=== PATIENT | female | born 1960 | race Caucasian/White ===

== ENCOUNTER 2017-10-30 18:37 | Emergency (ER) | payer OTHER ==
--- NOTE | 2017-10-30 18:48 | ED GENERAL ADULT ---
History of Present Illness General Chief Complaint: ETOH/Drug Related Complaint Stated Complaint: ETOH, COMBATIVE Source: old records, EMS, police Exam Limitations: intoxication Triage Nurses Notes Reviewed? yes HPI: Patient brought in on a police paper. Patient very intoxicated and belligerent. Patient unkempt and try to isolate herself in the bathroom. Patient then kicked aoc director intelligence officer and EMS personnel. Patient is very agitated and screaming and cursing. Patient is not answering any questions. Patient requires chemical and mechanical restraints for her and our safety. (Jenn MUNIZ,Ean Waldrop) Vital Signs & Intake/Output Vital Signs & Intake/Output Vital Signs Date Time Temp Pulse Resp B/P B/P Pulse O2 O2 Flow FiO2 Mean Ox Delivery Rate 10/31 0616 98.1 72 20 142/87 98 Room Air 10/31 0420 97.0 66 16 117/75 96 Room Air 10/31 0021 96.9 76 16 96/55 95 Room Air 10/30 2254 73 16 110/72 97 Room Air 10/30 2012 98.7 76 20 129/80 99 Room Air ED Intake and Output 10/31 0000 10/30 1200 Intake Total 0 Output Total Balance 0 Intake, Oral 0 Allergies Coded Allergies: phenylephrine (SWELLING 10/30/17) (Natty MUNIZ,Ashok Gaspar) Past History Travel History Traveled to [place] past 21 day No Medical History Any Pertinent Medical History? see below for history Psychiatric: anxiety Surgical History Surgical History: unobtainable Psychosocial History What is your primary language Somali Tobacco Use: Refused to answer ETOH Use: DRANK TONIGHT Illicit Drug Use: benzodiazepines Family History Hx Contributory? No (Ean Barajas MD) Review of Systems Review of Systems Constitutional: Reports: see HPI. (Ean Barajas MD) Physical Exam Physical Exam General Appearance: well developed/nourished, awake, anxious, severe distress Head: atraumatic Eyes: Bilateral: PERRL. Ears, Nose, Throat: normal pharynx Neck: normal inspection Respiratory: normal breath sounds, no respiratory distress, lungs clear Cardiovascular: regular rate/rhythm, normal peripheral pulses Gastrointestinal: normal bowel sounds, soft Back: normal inspection Extremities: normal inspection Neurologic/Psych: VERY AGITATED, WON'T ANSWER ANY QUESTIONS Skin: intact, normal color, warm/dry Core Measures ACS in differential dx? No CVA/TIA Diagnosis: No Sepsis Present: No Sepsis Focused Exam Completed? No (Jenn MUNIZ,Ean Waldrop) Progress Differential Diagnoses I considered the following diagnoses in my evaluation of the patient: [Alcohol intoxication, drug intoxication, electrolyte abnormality, AMI] Initial ED EKG: PENDING Hand-Off Endorsed To: Natty MUNIZ,Ashok Gaspar Endorsed Time: 1899 Pending: EKG, labs Comments: She is awake alert and oriented 3. Patient denies any suicidal homicidal ideations. Patient just states that she was using drugs. Patient contracts for safety at this time. Patient is stable for discharge. (Jenn MUNIZ,Ean Waldrop) Plan of Care: Orders Procedure Date/time Status Regular Diet 10/31 B Active URINE DRUG SCREEN FOR ER ONLY 10/31 801 Active Restraint- Behavioral (Renew) 10/30 2033 Active TROPONIN LEVEL 10/30 1841 Complete ETHANOL 10/30 1841 Complete COMPREHENSIVE METABOLIC PANEL 10/30 1841 Complete CBC WITHOUT DIFFERENTIAL 10/30 1841 Complete EKG 10/30 1841 Active Patient Safety Monitor 10/30 184 Active Restraint- Behavioral (Order) 10/30 1840 Active Restraint- Discontinue 10/30 1020 Active Laboratory Tests 10/30/171937: Anion Gap 11, Estimated GFR > 60, BUN/Creatinine Ratio 11.7, Glucose 85, Calcium 9.4, Total Bilirubin 0.2, AST 25, ALT 26, Alkaline Phosphatase 59, Troponin I < 0.01, Total Protein 6.7, Albumin 4.0, Globulin 2.7, Albumin/Globulin Ratio 1.5, CBC w Diff NO MAN DIFF REQ, RBC 3.79 L, MCV 97.3, MCH 33.6 H, MCHC 34.5, RDW 14.6 H, MPV 8.1, Gran % 44.9, Lymphocytes % 44.9, Monocytes % 5.7, Eosinophils % 3.7, Basophils % 0.8, Absolute Granulocytes 2.6, Absolute Lymphocytes 2.6, Absolute Monocytes 0.3, Absolute Eosinophils 0.2, Absolute Basophils 0, Serum Alcohol 196.0 10/30/171841: Methadone Screen Cancelled, Barbiturate Screen Cancelled, Ur Phencyclidine Scrn Cancelled, Amphetamines Screen Cancelled, U Benzodiazepines Scrn Cancelled, Urine Cocaine Screen Cancelled, Urine Cannabis Screen Cancelled Initial ED EKG: NORMAL SINUS RHYTHM WITH NON-SPECIFIC st SEGMENT CHANGES LATERALLY, THE NONSPECIFIC CHANGES ARE NEW COMPARED WITH PREVIOUS. Comments: 10/30/2017 7:55:21 PM patient signed out to me by Dr. Barajas at shift exchange specialist. Currently the patient is sleeping in for locked restraints. If she persists in her current sedated state and appears to present no harm to others then she will be removed from the restraints. 10/31/2017 7:15:52 AM Cathy has been removed from her restraints and has spent an uneventful emergency department stay for the weight shifter. Her case has been signed out to Dr. Barajas at shift exchange specialist. (Natty MUNIZ,Ashok Gaspar) Departure Departure Disposition: HOME OR SELF CARE Condition: Stable Clinical Impression Primary Impression: Alcohol intoxication Secondary Impressions: Polysubstance abuse Referrals: Nohemi MUNIZ,Myl (PCP/Family) Additional Instructions: Pulse 11 returned immediately to the emergency department for any concerns of harming herself, anywhere else or any other concerns. Departure Forms: Customer Survey General Discharge Information (Jenn MUNIZ,Ean Waldrop) Critical Care Note Critical Care Note Critical Care Time: non-applicable (Jenn MUNIZ,Ean Waldrop)
[2017-10-30 19:47] LABS: ABSOLUTE BASOPHIL COUNT 0 /CUMM (0.0-0.2); ABSOLUTE EOSINOPHIL COUNT 0.2 /CUMM (0.0-0.7); ABSOLUTE GRANULOCYTE CT 2.6 /CUMM (1.4-6.5); ABSOLUTE LYMPH COUNT 2.6 /CUMM (1.2-3.4); ABSOLUTE MONOCYTE COUNT 0.3 /CUMM (0.10-0.60); BASOPHIL % 0.8 % (0.0-2.0); EOSINOPHIL % 3.7 % (0-5); GRANULOCYTE % 44.9 % (42.2-75.2); HEMATOCRIT 36.9 % (37-47); MEAN CORPUSCULAR HGB 33.6 PG (27.0-31.0); MEAN CORPUSCULAR HGB CONC 34.5 G/DL (33.0-37.0); MEAN CORPUSCULAR VOLUME 97.3 FL (81.0-99.0); MEAN PLATELET VOLUME 8.1 FL (7.4-10.4); PLATELET COUNT 300 /CUMM (130-400); RBC DISTRIBUTION WIDTH 14.6 % (11.5-14.5); RED BLOOD CELL CT 3.79 /CUMM (4.20-5.40); WHITE BLOOD CELL COUNT 5.8 /CUMM (4.8-10.8)
[2017-10-31 08:48] VITALS: BP 132/81
== END 2017-10-31 08:50 ==
LOC: ERH 18:37
PROVIDERS: Emergency Medicine
DX: F10.129 Alcohol abuse with intoxication, unspecified (principal); F19.10 Other psychoactive substance abuse, uncomplicated; R45.1 Restlessness and agitation
CPT/HCPCS: 80307; 93005; 93010; 96372; 99291; G0480

== ENCOUNTER 2018-02-23 14:55 | Emergency (ER) | payer OTHER ==
[~2018-02-23] VITALS: Ht 162.6 cm; Wt 63.5 kg
--- NOTE | 2018-02-23 15:19 | ED GENERAL ADULT ---
See Addendum History of Present Illness General Chief Complaint: ETOH/Drug Related Complaint Stated Complaint: BIBA ETOH Source: patient, EMS Exam Limitations: no limitations Vital Signs & Intake/Output Vital Signs & Intake/Output Vital Signs Date Time Temp Pulse Resp B/P B/P Pulse O2 O2 Flow FiO2 Mean Ox Delivery Rate 02/23 1530 Room Air 02/23 1502 97.7 63 20 113/59 93 Room Air Allergies Coded Allergies: phenylephrine (SWELLING 10/30/17) Triage Note: BIBA FROM HOME, WITH C/O DRINKING A BOTTLE OF FIREBALL AND "I WANT DETOX". PT AMBULATORY TO BATHROOM UPON ARRIVAL, URINE CUP GIVEN, URINE TRIO SENT TO LAB. SECURITY AT BEDSIDE FOR WANDING. PATRICIA VIVEROS AT BEDSIDE FOR EVAL. Triage Nurses Notes Reviewed? yes Onset: Abrupt Duration: day(s): (1), constant, continues in ED, getting worse Timing: recent history Injury Environment: home Severity: moderate, severe No Modifying Factors: none LMP (ages 10-50): unknown : No Patient currently breastfeeds: No HPI: 57-year-old female history alcohol dependence brought in by ambulance for evaluation of alcohol detox. Patient reports that she has been drinking daily at least a pint of whiskey daily. Last drink was today. She drank a pint this afternoon. She denies any history of withdrawal seizures. She does note that she feels depressed and anxious. She made statements stating that she did not want to be alive. She reports that she takes Xanax 2 mg 3 times a day on most days. No other medications. She denies any homicidal ideation no hallucinations. (Patricia Andersen) Past History Travel History Traveled to [place] past 21 day No Medical History Any Pertinent Medical History? see below for history Psychiatric: alcohol dependence, anxiety Surgical History Surgical History: unobtainable Psychosocial History What is your primary language Yoruba Tobacco Use: Refused to answer ETOH Use: alcoholic Family History Hx Contributory? No (Patricia Andersen) Review of Systems Review of Systems Constitutional: Reports: no symptoms. EENTM: Reports: no symptoms. Respiratory: Reports: no symptoms. Cardiovascular: Reports: no symptoms. GI: Reports: no symptoms. Genitourinary: Reports: no symptoms. Musculoskeletal: Reports: no symptoms. Skin: Reports: no symptoms. Neurological/Psychological: Reports: see HPI, anxiety, depressed. Hematologic/Endocrine: Reports: no symptoms. Immunologic/Allergic: Reports: no symptoms. All Other Systems: Reviewed and Negative (Patricia Andersen) Physical Exam Physical Exam General Appearance: well developed/nourished, alert, awake, moderate distress, intoxicated Head: atraumatic, normal appearance Eyes: Bilateral: normal appearance, PERRL, EOMI. Ears, Nose, Throat: normal pharynx, normal ENT inspection, hearing grossly normal Neck: normal inspection, supple, full range of motion Respiratory: normal breath sounds, chest non-tender, no respiratory distress, lungs clear Cardiovascular: regular rate/rhythm, normal peripheral pulses Peripheral Pulses: 2+ radial (R), 2+ radial (L) Gastrointestinal: normal bowel sounds, soft, non-tender, no organomegaly Back: normal inspection, normal range of motion Extremities: normal inspection, normal range of motion, no edema Neurologic/Psych: no motor/sensory deficits, awake, alert, oriented x 3, normal gait Skin: intact, normal color, warm/dry Lymphatic: no anterior cervical rafael Core Measures ACS in differential dx? No CVA/TIA Diagnosis: No Sepsis Present: No Sepsis Focused Exam Completed? No (Patricia Andersen) Progress Differential Diagnoses I considered the following diagnoses in my evaluation of the patient: [Alcohol intoxication, drug withdrawal, drug intoxication, alcohol withdrawal, electrolyte abnormality] Plan of Care: Orders Procedure Date/time Status Regular Diet 02/23 D Active Restraint- Behavioral (Renew) 02/23 1742 Active Restraint- Behavioral (Order) 02/23 1603 Active Add-on Test (ER Only) 02/23 1555 Active Continuous Observation Monitor 02/23 1544 Active ED CRISIS PSYCH CONSULT 02/23 1544 Active CIWA 02/23 1509 Active MAGNESIUM 02/23 1509 Complete ETHANOL 02/23 1509 Complete COMPREHENSIVE METABOLIC PANEL 02/23 1509 Complete CBC WITHOUT DIFFERENTIAL 02/23 1509 Complete CULTURE,URINE 02/23 1500 Active URINE DRUG SCREEN FOR ER ONLY 02/23 1500 Complete URINALYSIS 02/23 1500 Complete Laboratory Tests 02/23/18 1523: Anion Gap 14, Estimated GFR > 60, BUN/Creatinine Ratio 17.1, Glucose 93, Calcium 9.8, Magnesium 2.2, Total Bilirubin 0.3, AST 71 H, ALT 54 H, Alkaline Phosphatase 66, Total Protein 7.2, Albumin 4.1, Globulin 3.1, Albumin/Globulin Ratio 1.3, CBC w Diff NO MAN DIFF REQ, RBC 4.09 L, MCV 100.4 H, MCH 34.5 H, MCHC 34.3, RDW 16.1 H, MPV 8.0, Gran % 45.6, Lymphocytes % 41.1, Monocytes % 3.7, Eosinophils % 9.2 H, Basophils % 0.4, Absolute Granulocytes 3.8, Absolute Lymphocytes 3.4, Absolute Monocytes 0.3, Absolute Eosinophils 0.8, Absolute Basophils 0, Serum Alcohol 247.0 02/23/18 1500: Urine Opiates Screen < 100, Methadone Screen < 40, Barbiturate Screen < 60, Ur Phencyclidine Scrn < 6.00, Amphetamines Screen < 100, U Benzodiazepines Scrn > 800 H, Urine Cocaine Screen 179, Urine Cannabis Screen < 5.00, Urine Color YEL, Urine Clarity HAZY H, Urine pH 6.0, Ur Specific [place] <= 1.005, Urine Protein NEG, Urine Ketones NEG, Urine Nitrite POS H, Urine Bilirubin NEG, Urine Urobilinogen 0.2, Ur Leukocyte Esterase SMALL H, Ur Microscopic SEDIMENT EXAMINED, Urine RBC RARE, Urine WBC 1-3 H, Ur Epithelial Cells MOD H, Urine Bacteria PACKD H, Urine Hemoglobin NEG, Urine Glucose NEG Microbiology 02/23 1500 URINE ROUT: Urine Culture - RECD Patient is here requesting alcohol detox. She currently is obviously intoxicated and smells of alcohol. She made statements stating that she no longer going to be alive. Labs ordered patient will see crisiS. Patient suddenly ran out of her room and attempted to leave the ambulance entrance. She is intoxicated and belligerent. She is not listening the staff. She is making threatening statements towards staff. Patient is able to brought back into the room where she continued to be belligerent was swinging towards staff. She is placed in 4 POINT restraints medicated with Ativan Benadryl and Haldol. Patient has been resting comfortably since being medicated. Restraints are reduced to 2 point restraints. PT SIGNED OUT TO DR MENJIVAR PENDING CRISIS/CIWA. Initial ED EKG: none Hand-Off Endorsed To: Christiano MUNIZ,Casey Vazquez Endorsed Time: 1851 Pending: consult (CRISIS) (Patricia Andersen) Departure Departure Disposition: STILL A PATIENT Condition: Stable Clinical Impression Primary Impression: Alcohol intoxication Qualifiers: Complication of substance-induced condition: uncomplicated Qualified Code: F10.920 - Alcohol use, unspecified with intoxication, uncomplicated Secondary Impressions: Suicidal ideation Referrals: Nohemi MUNIZMyl (PCP/Family) Departure Forms: Customer Survey General Discharge Information (Patricia Andersen) PA/WIRE MESH KNITTER Co-Sign Statement Statement: ED Attending supervision documentation- [X] I saw and evaluated the patient. I have also reviewed all the pertinent lab results and diagnostic results. I agree with the findings and the plan of care as documented in the PA's/WIRE MESH KNITTER's documentation. [X] I have reviewed the ED Record and agree with the PA's/WIRE MESH KNITTER's documentation. [] Additions or exceptions (if any) to the PAs/WIRE MESH KNITTER's note and plan are summarized below: [] (Jenn MUNIZ,Ean Waldrop) Critical Care Note Critical Care Note Critical Care Time: non-applicable (Patricia Andersen)
[2018-02-23 15:30] LABS: ABSOLUTE BASOPHIL COUNT 0 /CUMM (0.0-0.2); ABSOLUTE EOSINOPHIL COUNT 0.8 /CUMM (0.0-0.7); ABSOLUTE GRANULOCYTE CT 3.8 /CUMM (1.4-6.5); ABSOLUTE LYMPH COUNT 3.4 /CUMM (1.2-3.4); ABSOLUTE MONOCYTE COUNT 0.3 /CUMM (0.10-0.60); BASOPHIL % 0.4 % (0.0-2.0); EOSINOPHIL % 9.2 % (0-5); GRANULOCYTE % 45.6 % (42.2-75.2); HEMATOCRIT 41.1 % (37-47); MEAN CORPUSCULAR HGB 34.5 PG (27.0-31.0); MEAN CORPUSCULAR HGB CONC 34.3 G/DL (33.0-37.0); MEAN CORPUSCULAR VOLUME 100.4 FL (81.0-99.0); PLATELET COUNT 371 /CUMM (130-400); RBC DISTRIBUTION WIDTH 16.1 % (11.5-14.5); RED BLOOD CELL CT 4.09 /CUMM (4.20-5.40); WHITE BLOOD CELL COUNT 8.3 /CUMM (4.8-10.8)
--- NOTE | 2018-02-24 08:12 | ED PSYCH CRISIS CONSULTATION ---
See Addendum Crisis Consult Basic Assessment Date of Consult: 02/24/18 Responsible Person/Accompanied By: MIKEL Insurance Authorization: Insurance #1: Insurance name: OLESYA SORIA Phone number: Policy number: [id number] Group number: Authorization number: ED Provider: Patient's ED Provider: Raul Andersen Primary Care Physician: Patient's PCP: Lin Song MD PCP's Current Psychiatrist: Seeing her PCP for Xanax and Wellbutrin Chief Complaint: ETOH/Drug Related Complaint Patient's Quote: " I don't know, I had a bad day." Present Illness: The patient is a 57 year old, , female, who presented to the ED last evening intoxicated and requesting a detox. The patient had a high BAL upon arrival and was not able to be seen. She was held over night and was seen this AM, after her breathalyzer was .000. She presents calm and cooperative and was well engaged in the evaluation. She states that she was drinking yesterday and found her door to be open, prompting her to call the police. She states that she does not remember what happened when they arrived, however they sent her to the ED. She denies having an issue with alcohol, noting "No, I just drink occasionally." She states that she drinks about 1x monthly and does not feel that it is an issue, despite 2 ED presentations for intoxication in 2018. She states that she does not have any depression, however has struggled with anxiety for many years. She states that her depression is a 1 out of 10 and anxiety a 10 out of 10, 10 being the most severe. She denies feeling helpless, hopeless or useless. She states that she does not have any problems with sleep, appetite, concentration, motivation, or energy. She denies any current suicidal or homicidal ideations. She states that she has never attempted suicide and has a lot to live for. She did make some suicidal statements upon arrival to the ED, "my kids don't love me and I don't care if I ." She reports that she does not remember making those statements and that she does not feel that way," I have no reason to want to ." She reports enjoying her life and spending time with her children and her four grandchildren. She states that she is not in any current psychiatric treatment, however is being prescribed Xanax and Wellbutrin by her PCP. She has a history of attending treatment at [facility] in [facility] and [facility] and was seeing a private therapist, Lula Mcdonald. She states that her primary stressor is managing her anxiety and worry. She denies any trauma or abuse history. She states that she does have a history of Cocaine abuse, however states that she does not use any drugs at this time. She would like to be discharged and to return to treatment with Lula Mcdonald. CHELSEA left a message for the patients sister, Gerber ([phone]), and will await a call back. CHELSEA spoke to the patients ex- Francois ([phone]), who resides with the patient and is still romantically involved with the patient. Francois states that they got approximately 20 years ago and then resumed their relationship , quickly after. Francois states that the patient has been struggling with addiction, for many years. Francois reports that 5-6 years ago, she had a "forced nursing home," after struggling with Crack abuse. Francois reports that after that, she had multiple arrests and her children became concerned with her watching her grandchildren. Francois reports that he has noticed that the patient has been doing better, noting that she has been doing better over the last month, then she has over the last 3 -4 years. Francois states that they got into an argument yesterday and he suspected that she was drinking, however did not see her and notes there are no bottles at the house. Francois confirms that he has never known the patient to have attempted suicide. Francois reports that the patient has talked about suicide in the past, however has not mentioned it lately. Francois states that he is not concerned about the patients safety and does not think that she will kill herself. Francois believes that the patient would benefit from outpatient treatment and seeing a psychiatrist. Patient's Address: [address] [place] [address] Other Phone Number: Who Do You Live With? Spouse (and daughter) Family/Informants Interviewed: Ex- / current boyfriend- Francois- Allergies - Coded Allergies: No Known Allergies (02/24/18) Current Medications - Scheduled Medications Bupropion HCl (Bupropion HCl Sr) 150 MG TABLET.ER 1 TAB PO BID MENTAL HEALTH # 60 (Reported) Entered as Reported by Fazal Wade on 02/24/18 08 Miscellaneous Medications Alprazolam 2 MG TABLET ANXIETY (Reported) Entered as Reported by Fazal Wade on 02/24/18816 Cyclobenzaprine HCl 5 MG TABLET MUSCLE SPASMS (Reported) Entered as Reported by Fazal Wade on 02/24/18816 Laboratory Results: Laboratory Tests 02/23/18 1523: Anion Gap 14, Estimated GFR > 60, BUN/Creatinine Ratio 17.1, Glucose 93, Calcium 9.8, Magnesium 2.2, Total Bilirubin 0.3, AST 71 H, ALT 54 H, Alkaline Phosphatase 66, Total Protein 7.2, Albumin 4.1, Globulin 3.1, Albumin/Globulin Ratio 1.3, CBC w Diff NO MAN DIFF REQ, RBC 4.09 L, MCV 100.4 H, MCH 34.5 H, MCHC 34.3, RDW 16.1 H, MPV 8.0, Gran % 45.6, Lymphocytes % 41.1, Monocytes % 3.7, Eosinophils % 9.2 H, Basophils % 0.4, Absolute Granulocytes 3.8, Absolute Lymphocytes 3.4, Absolute Monocytes 0.3, Absolute Eosinophils 0.8, Absolute Basophils 0, Serum Alcohol 247.0 02/23/18 1500: Urine Opiates Screen < 100, Methadone Screen < 40, Barbiturate Screen < 60, Ur Phencyclidine Scrn < 6.00, Amphetamines Screen < 100, U Benzodiazepines Scrn > 800 H, Urine Cocaine Screen 179, Urine Cannabis Screen < 5.00, Urine Color YEL, Urine Clarity HAZY H, Urine pH 6.0, Ur Specific [place] <= 1.005, Urine Protein NEG, Urine Ketones NEG, Urine Nitrite POS H, Urine Bilirubin NEG, Urine Urobilinogen 0.2, Ur Leukocyte Esterase SMALL H, Ur Microscopic SEDIMENT EXAMINED, Urine RBC RARE, Urine WBC 1-3 H, Ur Epithelial Cells MOD H, Urine Bacteria PACKD H, Urine Hemoglobin NEG, Urine Glucose NEG Microbiology 02/23 1500 URINE ROUT: Urine Culture - RES GRAM NEGATIVE RODS Past History Past Medical History Psychiatric: alcohol dependence, anxiety Past Surgical History Surgical History: unobtainable Psychosocial History Strengths/Capabilities: The patient resides in her own home and has a supportive family. Physical Limitations (Interventions): None noted Psychiatric Treatment History Psych Treatment Psychiatric Treatment Yes Inpatient Treatment No Outpatient Treatment Yes Location of Treatment [facility] and IOP Reason for Treatment Anxiety, substance abuse and depression. Dates of Treatment 1990, 1991, Response to Treatment She states that she is not currently in any treatment and successfully completed all previous treatment. Diagnosis by History: Unknown Substance Use/Abuse History Drug Use/Abuse Substances Used/Abused Yes Substance Used/Abused Alcohol First Use 22 years old Last Used Yesterday; 02/23/2018 How much used/taken Unclear How often "1x monthly." For how long Unclear Route of use oral Substance Abuse Treatment Substance Abuse Treatment Past Substance Abuse [place] Yes Inpatient Treatment No Outpatient Treatment Yes Location of Treatment [facility] and OPS Reason for Treatment Crack Cocaine abuse- alcohol Dates of Treatment 1990, 1991, for Bezodiazepine taper Response to Treatment She states that she completed all previous treatment episodes successfully. Comments: N/A Current Mental Status Mental Status Orientation: Person, Place, Situation Affect: Anxious Speech: WNL Neuro-vegetative: WNL (Pt. denies all symptoms) Appearance Appearance- Dress/Hygiene: The patient was sitting in a chair, in hospital attire, with good eye contact and appeared to be appropriately groomed. Behaviors Thought Process: WNL Thought Content: WNL Memory: WNL Insight: WNL SI/HI Risk Assessment Past Suicidal Ideation/Attempts Yes Current Suicidal Ideation/Att No Past Homicidal Ideation/Att: No Current Homicidal Ideation/Attempts No Degree of Intent: The patient denies any current suicidal ideations. Her ex- - current boyfriend Francois, notes that she has made suicidal statements in the past, however has not made any lately. Francois is not concerned about the patients safety and does not think that she would harm herself. Danger To: N/A Gravely Disabled: N/A Risk Factors: high anxiety/distress, substance abuse Lethality Ratin PTSD Checklist PTSD Done? patient declined (Denies trauma or abuse hx.) ED Management Sitter: Yes Restraints: No DSM5/PS Stressors/Medical Prob Diagnosis' (DSM 5, Stressors, Medical): F41.9 Unspecified Anxiety Disorder F32.9 Unspecified Depressive Disorder F10.10 Alcohol Use Disorder Medical: Unremarkable Stressors: The patient states that she struggles with chronic anxiety Current GAF: 60 Comments: N/A Departure Disposition Psych Medical Clearance Date: 02/24/18 Medically Cleared at: 729 Time Started: 729 Time Ended: 829 Psychiatrist Consulted: Dr. Martinez Date Disposition Established: 02/24/18 Time Disposition Established: 1030 Plan for Disposition - Modality: Outpatient Facility: [facility] Rationale for Disposition: The patient presented to the ED last evening intoxicated and made some passive suicidal statements. The patient was held over and evaluted when she was sober.The patient reports anxiety is her primary concern and that she does not have a problem with alcohol. She denies feeling suicidal and does not remember making any statements last evening. She is future focused and states that she has a lot to live for, noting she spends time with her children and her 4 grandchildren. She is interested in outpatient treatment and is motivated to attend. Her ex-boyfriend / current boyfriend is not concerned about her safety and will pick her up and take her home. Case discussed with Dr. Martinez and she is recommending that the patient follow up with outpatient treatment. SW contacted [facility] ([phone]), where the patient attended treatment in the past and spoke with Kassy. Kassy states that one of the clinicians in their office will follow up with the patient later today, to book an appointment. The patient will follow up with [facility], if she does not hear from them. The patient states that if her symptoms increase or she has any concerns for her safety, she will call 911 or return to the ED. Additional Instructions: N/A Referrals Nohemi MUNIZ,Myl (PCP/Family)
[2018-02-24] MEDS ORDERED: CYCLOBENZAPRINE5 M2 PO (08:17)
[2018-02-24] MEDS ORDERED: ALPRAZOLAM2 M2 PO (08:17)
[2018-02-24] MEDS ORDERED: BUPROPION HCL150 M4 PO (08:18)
[2018-02-24 10:45] VITALS: BP 140/80
== END 2018-02-24 10:45 ==
LOC: ERH 14:55
PROVIDERS: Physician Assistant Medical
DX: F10.129 Alcohol abuse with intoxication, unspecified (principal); R45.851 Suicidal ideations; F41.9 Anxiety disorder, unspecified
CPT/HCPCS: 80307; 81001; 87086; 96372; G0463; G0480; J1200; J1630